=== PATIENT | male | born 1965 | race Caucasian/White ===

== ENCOUNTER 2016-12-28 18:42 | Inpatient (IN) ==
[2016-12-28] MEDS ORDERED: ZOFRAN IV ONE ×2 (18:53→20:07)
--- NOTE | 2016-12-28 19:33 | PROVIDER DOCUMENTATION ---
HPI-Abdominal Pain/GI Problem <Alden Zhang - Last Filed: 12/28/16 21:02> - General Source: patient, family () - History of Present Illness-ABD Nature of Presenting Problems: Pt is a 51 yom who presents to ER with CC of possible hemtemesis, hemoptysis, and hematochezia. Pt's reports that pt does not like going to hospital/ doctors, but finally forced pt to come to ER. Pt has had hematemesis and hematochezia x6 months, but became increasingly concerned when pt began coughing up pinkish/red sputum, resembling meat chunks. Pt reports that he use to be a big smoker, but quit approximately x1 week ago, and has since became severely weak and lethargic. Pt also reports that he use to drink a pint of ETOH per week. Pt's reports that pt has lost his appetite and lost a significant amount of weight that has become progressively worse over the past year. Abdominal Pain Onset Location: reports: other (unspecified) Pain Radiation: reports: no radiation Quality of Pain: reports: other (severe weakness) Severity in ED: reports: moderate Onset/Duration: reports: other (x6 months) Timing: reports: still present, getting worse Associated Symptoms: reports: cough, fatigue, loss of appetite, nausea, shortness of breath, vomiting, weakness, other (hemoptysis; hematochezia; hematemesis; loss of appetite). denies: anxiety, arm pain, back/neck pain, chest pain, constipation, EENT symptoms, fever/chills, genitourinary problems, sinus congestion/drainage, seizure, trouble walking Last BM: unsure Dark Stools Present?: reports: maroon Emesis Description: reports: red blood <Dagoberto Cobb - Last Filed: 12/28/16 21:39> - General Chief Complaint: GI Bleed Stated Complaint: VOMITING BLOOD, BLEEDING RECTUM Time Seen by Provider: 12/28/16 18:50 Allergies/Adverse Reactions: Patient Allergies Allergy/AdvReac Type Severity Reaction Status Date / Time No Known Allergies Allergy Verified 12/28/16 19:33 Home Medications: Home Medication List Medication Instructions Recorded Confirmed Last Taken Type No Home Medications 12/28/16 12/28/16 Unknown History Review of Systems - Adult - REVIEW OF SYSTEMS - ADULT Constitutional: reports: fatique, weight loss. denies: chills, fever, night sweats, weight gain Eyes: reports: no symptoms reported Ears, Nose, Mouth & Throat: reports: no symptoms reported Cardiovascular: denies: chest pain, edema, heart murmur, irregular heart rate, palpitations, poor circulation, syncope Respiratory: reports: chronic cough, cough, dyspnea on exertion, excessive sputum production, hemoptysis, shortness of breath, wheezing. denies: pleurisy Gastrointestinal: reports: hematemesis, diarrhea, nausea, poor appetite, rectal bleeding, vomiting, other (hematochezia). denies: constipation, difficulty swallowing, frequent heartburn Genitourinary: reports: no symptoms reported Musculoskeletal: reports: muscle weakness. denies: bone pain, back pain, frequent leg cramps, joint pain, joint swelling, muscle aches, neck pain Integumentary: reports: no symptoms reported Neurological: reports: no symptoms reported Psychiatric: reports: no symptoms reported Endocrine: reports: no symptoms reported Hematologic/Lymphatic: reports: no symptoms reported Allergic/Immunologic: reports: no symptoms reported All Other Systems: Reviewed and Negative <Dagoberto Cobb - Last Filed: 12/28/16 21:39> Past History - Adult - PAST MEDICAL HISTORY-ADULT Review of Records: reports: Nursing Assessment Review, Medications Reviewed - IMMUNIZATION STATUS Childhood Immunizations: See Nurse Assessment Flu Vaccine: See Nurse Assessment <Dagoberto Cobb - Last Filed: 12/28/16 21:39> Physical Exam-General - CONSTITUTIONAL General Appearance: appears well, alert, moderate distress, other (chronically ill-appearance) <Dagoberto Cobb - Last Filed: 12/28/16 21:39> Progress - PLAN OF CARE/RESULTS Progress/Plan/Lab Results: Vital Signs - 24 hr 12/28/16 12/28/16 18:45 20:52 Temperature 98.8 F Pulse Rate 93 H 98 H Respiratory 20 9 L Rate Blood Pressure 125/47 119/74 O2 Sat by Pulse 97 98 Oximetry Orders Category Date Time Status Saline Loc NOW Care 12/28/16 19:33 Completed ABD/PELVIS/PULM ARTERIES [CT] Stat Exams 12/28/16 19:58 Taken FLAT/UPRIGHT ABD/1 VIEW CHEST [RAD] Stat Exams 12/28/16 18:53 Taken HEAD W/O CONTRAST [CT] Stat Exams 12/28/16 20:06 Taken ALCOHOL BLOOD Stat Lab 12/28/16 19:20 Completed CBC WITH ELECTRONIC DIFF [HEME] Stat Lab 12/28/16 19:20 Completed CMP [COMPREHENSIVE METABOLIC PANEL] [CHEM] Stat Lab 12/28/16 19:20 Completed LIPASE [CHEM] Stat Lab 12/28/16 19:20 Completed OCCULT BLOOD SCREENING [STOOL] Stat Lab 12/28/16 19:20 Completed PROTIME WITH INR [COAG] Stat Lab 12/28/16 19:20 Completed PTT [COAG] Stat Lab 12/28/16 19:20 Completed TYPE & SCREEN [BBK] Stat Lab 12/28/16 19:20 Completed 0.9% Sodium Chloride Inj [Ns] 1,000 ml Med 12/28/16 20:07 Discontinued IV 999 mls/hr 0.9% Sodium Chloride Inj [Ns] 1,000 ml Med 12/28/16 20:15 Discontinued IV 999 mls/hr Furosemide [Lasix] Med 12/28/16 20:15 Discontinued 40 mg IV NOW ONE Hydromorphone [Dilaudid] Med 12/28/16 20:07 Discontinued 1 mg IV NOW ONE Ondansetron [Zofran] Med 12/28/16 18:53 Discontinued 4 mg IV NOW ONE Ondansetron [Zofran] Med 12/28/16 20:07 Discontinued 4 mg IV NOW ONE Laboratory Tests 12/28/16 12/28/16 12/28/16 19:20 19:20 19:20 WBC 9.91 RBC 4.08 L Hgb 12.1 L Hct 36.1 L MCV 88.5 MCH 29.7 MCHC 33.5 RDW Std Deviation 12.0 Plt Count 415 H MPV 9.0 Immature Gran % (Auto) 0.0 Neut % (Auto) 76.4 H Lymph % (Auto) 11.2 L Zapata % (Auto) 10.0 H Eos % (Auto) 2.2 Baso % (Auto) 0.2 Immature Gran # (Auto) 0.00 Neut # (Auto) 7.57 H Lymph # (Auto) 1.11 L [place] # (Auto) 0.99 H Eos # (Auto) 0.22 Baso # (Auto) 0.02 PT INR PTT (Actin FS) Sodium 138 Potassium 4.6 Chloride 98 Carbon Dioxide 29 Anion Gap 11 BUN 22 Creatinine 1.3 H Estimated GFR/1.73 m2 58 BUN/Creatinine Ratio 17 Glucose 107 H Calculated Osmolality 279 Calcium 13.3 H* Total Bilirubin 0.22 AST 148 H ALT 111 H Alkaline Phosphatase 169 H Total Protein 6.5 Albumin 3.3 L Globulin 3.2 Albumin/Globulin Ratio 1.0 Lipase 36 Plasma/Serum Ethyl Alc Blood Type Antibody Screen 12/28/16 12/28/16 19:20 19:20 WBC RBC Hgb Hct MCV MCH MCHC RDW Std Deviation Plt Count MPV Immature Gran % (Auto) Neut % (Auto) Lymph % (Auto) Zapata % (Auto) Eos % (Auto) Baso % (Auto) Immature Gran # (Auto) Neut # (Auto) Lymph # (Auto) Zapata # (Auto) Eos # (Auto) Baso # (Auto) PT 12.0 H INR 1.13 PTT (Actin FS) 26.3 Sodium Potassium Chloride Carbon Dioxide Anion Gap BUN Creatinine Estimated GFR/1.73 m2 BUN/Creatinine Ratio Glucose Calculated Osmolality Calcium Total Bilirubin AST ALT Alkaline Phosphatase Total Protein Albumin Globulin Albumin/Globulin Ratio Lipase Plasma/Serum Ethyl Alc Blood Type A NEGATIVE Antibody Screen NEGATIVE - REASSESSMENT Reassessment #1 Time Reassessed: 21:16 Status: other (Dr. Zhang discussed potential options for pt to execute, given his new diagnosis.) - XRAY 1 XRAY: Bilateral XRAY Study: Chest Impression: See EMR Report XRAY Interpretation: Large mass in L lung - CT/MRI 1 CT Study: Head Impression: See EMR Report CT Results: Normal 2 CT Study: Abdomen, Pelvis, Thorax Impression: See EMR Report (small L effusion; Large mass in L lung with mild fluid surrounding;) - CONSULTS/PCP/HOSPITALIST Notification #1 *Consult/PCP/Hospitalist*: Dr. Baron (Hospitalist) Time Discussed: 21:20 Consult Disposition: Admit <Dagoberto Cobb - Last Filed: 12/28/16 21:39> Departure - Departure Time of Disposition Order: 21:03 Certified Medical Emergency: Emergent <Alden Zhang - Last Filed: 12/28/16 21:02> - Departure Time of Disposition Order: 21:39 Certified Medical Emergency: Emergent <Dagoberto Cobb - Last Filed: 12/28/16 21:39> - Departure DIAGNOSIS: Hypercalcemia of malignancy Lung cancer Qualifiers: Laterality: left Lung location: lower lobe of lung Qualified Code(s): C34.32 - Malignant neoplasm of lower lobe, left bronchus or lung Disposition: ADMITTED INPATIENT 09 Condition: Fair Referrals: None,PCP [Primary Care Provider] - Attestation - Scribe Verification/Attestation Scribe:: Dagoberto Cobb Acting as Scribe for:: Alden Zhang Scribe documention review:: This chart was documented by a scribe and accurately reflects the service the provider performed and the decisions made by the provider. <Dagoberto Cobb - Last Filed: 12/28/16 21:39> Physician Attestation
[2016-12-28 19:45] LABS: MANUAL DIFF NEEDED? NO
[2016-12-28 19:47] LABS: BASO% 0.2 % (0.0-0.8); EOS# 0.22 X1000 (0.0-0.7); EOS% 2.2 % (0.0-10.0); HEMATOCRIT 36.1 % (42.0-52.0); HEMOGLOBIN 12.1 g/dL (14.0-18.0); LYMPH# 1.11 X1000 (1.2-3.4); LYMPH% 11.2 % (20.5-51.1); MCH 29.7 PG (27-31); MCHC 33.5 g/dL (33-37); MCV 88.5 FL (81-99); MONO# 0.99 X1000 (0.11-0.59); NEUT% 76.4 % (42.2-75.2); PLT 415 X1000 (130-400); RBC 4.08 XMIL (4.7-6.1)
[2016-12-28 19:56] LABS: INR 1.13; PTT 26.3 Seconds (22.0-36.0)
[2016-12-28] MEDS ORDERED: NS 1,000 ML IV ONE ×2 (20:07→20:15)
[2016-12-28] MEDS ORDERED: DILAUDID IV ONE (20:07)
[2016-12-28 20:14] LABS: ALBUMIN 3.3 g/dL (3.5-5.0); POTASSIUM 4.6 mmol/L (3.5-5.1); TOTAL BILIRUBIN 0.22 mg/dL (0.20-1.00); TOTAL PROTEIN 6.5 g/dL (6.3-8.3)
[2016-12-28 20:15] LABS: CALCIUM 13.3 mg/dL (8.8-10.2)
[2016-12-28] MEDS ORDERED: LASIX IV ONE (20:15)
--- NOTE | 2016-12-28 22:14 | Diag Imaging Result Document ---
PROCEDURE NAME: ABD/PELVIS/PULM ARTERIES - 12/28/2016 CT CHEST WITH INTRAVENOUS CONTRAST: TECHNIQUE: Dose reduction protocol. FINDINGS: There is a large left lung mass which I believe is centered in the lower lobe although a portion may be within the upper lobe. This measures at least 7.3 x 9.9 cm. The left lower lobe pulmonary bronchus is occluded. There are enlarged left hilar lymph nodes and mediastinal lymph nodes. There is a 1.7 cm left pleural effusion. No right-sided effusion. No cardiomegaly. No thoracic aortic aneurysm or dissection. Normal opacification of the right pulmonary arteries. There is circumferential narrowing of the distal left main pulmonary artery with decreased generalized perfusion on the left. The patient has emphysema. There is a 10 mm nodule laterally in the right lower lobe. There is a faint nodule in the mid right lung on image 82. A 5 mm nodule is found in the medial right lower lobe on image 139. There is postobstructive infiltrates in the left lower lobe. IMPRESSION: Large left lung mass with hilar and mediastinal adenopathy consistent with a primary malignancy with nodular metastases in the right lung. ABDOMEN AND PELVIS WITH INTRAVENOUS CONTRAST: FINDINGS: No distinct hepatic mass. Normal spleen, pancreas, and adrenal glands. The gallbladder is contracted. Normal enhancement of the kidneys. No hydronephrosis. No aortic aneurysm. Mild atherosclerosis. There is stool throughout the colon. No abscess. Prostate is not enlarged. The urinary bladder is only mildly distended. No enlarged lymph nodes. IMPRESSION: Constipation. A preliminary report was given at 8:53 p.m.
--- NOTE | 2016-12-28 22:16 | Diag Imaging Result Document ---
PROCEDURE NAME: HEAD W/O CONTRAST - 12/28/2016 CT BRAIN WITHOUT: TECHNIQUE: Dose reduction protocol. FINDINGS: No parenchymal hemorrhage. No epidural or subdural hematoma. No subarachnoid hemorrhage. No hydrocephalus. No mass identified on this noncontrasted exam. No sinus opacification. IMPRESSION: No hemorrhage. Negative brain CT without contrast. If there is clinical suspicion for brain metastases, an MRI is recommended. A preliminary report was given at 8:53 p.m.
[2016-12-28] MEDS ORDERED: ZOMETA 4 MG in NS 100 ML IV ONE (23:19)
[2016-12-28] MEDS ORDERED: NORCO-5 PO PRN (23:19)
[2016-12-28] MEDS: ZOFRAN IV PRN (23:42)
[2016-12-28] MEDS: NS 1,000 ML IV SCH (23:42)
[2016-12-29] MEDS: MIACALCIN SUBQ SCH ×2 (00:22→10:05)
[2016-12-29] MEDS: LOVENOX SUBQ SCH (00:22)
[2016-12-29] MEDS: ZOFRAN IV PRN ×2 (02:55→16:07)
[2016-12-29] MEDS: NS 1,000 ML IV SCH ×2 (06:48→13:34)
[2016-12-29] MEDS: PRILOSEC PO SCH (06:49)
[2016-12-29 06:54] LABS: MANUAL DIFF NEEDED? NO
[2016-12-29] MEDS: PHENERGAN IV PRN ×3 (07:05→18:07)
[2016-12-29] MEDS: SODIUM CHLORIDE 0.9% INJ PRN ×2 (07:05→18:07)
[2016-12-29] MEDS: DILAUDID IV PRN ×3 (07:05→21:30)
[2016-12-29 07:07] LABS: BASO% 0.2 % (0.0-0.8); EOS# 0.13 X1000 (0.0-0.7); EOS% 1.3 % (0.0-10.0); HEMATOCRIT 34.3 % (42.0-52.0); HEMOGLOBIN 11.3 g/dL (14.0-18.0); LYMPH# 1.33 X1000 (1.2-3.4); LYMPH% 13.4 % (20.5-51.1); MCH 29.3 PG (27-31); MCHC 32.9 g/dL (33-37); MCV 88.9 FL (81-99); MONO# 0.78 X1000 (0.11-0.59); MONO% 7.9 % (1.7-9.3); MPV 8.9 FL (7.4-10.4); NEUT% 77.2 % (42.2-75.2); PLT 387 X1000 (130-400); RBC 3.86 XMIL (4.7-6.1)
[2016-12-29 07:23] LABS: AGAP 12; BUN 19 mg/dL (8-22); CALCIUM 11.6 mg/dL (8.8-10.2); CHLORIDE 97 mmol/L (98-107); COSMO 277; POTASSIUM 4.1 mmol/L (3.5-5.1); SODIUM 137 mmol/L (136-145); TCO2 28 mmol/L (25-35)
--- NOTE | 2016-12-29 08:51 | HISTORY AND PHYSICAL ---
CHIEF COMPLAINT: Hemoptysis, generalized weakness, increasing thirst. HISTORY OF PRESENT STAY: This is a 51-year-old male with unremarkable past medical history, who presented to the emergency department complaining of general weakness. According to the , who is at bedside, the patient has been having continuous hemoptysis that was getting worse over about a year. Also, she noticed that this patient started losing weight for last 2-4 months, approximately at 16-20 pounds unintentionally. According to the , the patient does not like going to see doctors or going to the hospital, but finally she forced him to come to the emergency room today. The patient, as we mentioned before, was becoming severely weak and lethargic sometimes. He also reports having really poor appetite. Upon emergency room evaluation, they found a huge mass in the left lower lobe that is 10 cm size, so the patient is going to be admitted for further evaluation and treatment. PAST MEDICAL HISTORY: None. PAST SURGICAL HISTORY: None. ALLERGIES: Penicillin. SOCIAL HISTORY: He has smoked for about 37 years, 2-3 packs per day. Has reduced to 1 pack per day in the last year. He just stopped smoking a few days ago because of this hemoptysis that was getting worse. He reports drinking a lot of alcohol, 1 pint of alcohol daily. Apparently he quit 1 year ago. He denies using any drugs. 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 FAMILY HISTORY: Noncontributory. REVIEW OF SYSTEMS: Eleven systems were removed and are positive for increased thirst, weight loss, hemoptysis, and loss of appetite. He denies any fever or chills. PHYSICAL EXAMINATION: VITALS: Temperature 98.8 degrees, heart rate 98 respiratory rate 20, blood pressure 119/74, O2 saturation 98% on room air. GENERAL EXAMINATION: This is a chronically ill-looking and very disheveled 51-year-old male, lying in bed, in no acute distress. HEENT: Head is normocephalic, atraumatic. Anicteric sclerae and pale conjunctivae. Pupils equal, round, reactive to light and accommodation. Patient looks malnourished. NECK: Supple. No jugular venous distention noted. No carotid bruits. No lymphadenopathy. No thyromegaly. CARDIOVASCULAR EXAMINATION: S1, S2 heard. No murmurs, gallops, or rubs. Regular rate and rhythm. RESPIRATORY EXAMINATION: Decreased breath sounds globally. Some coarse breath sounds in the left base. The patient is not using any accessory muscles. No work of breathing noted. Not requiring any oxygen supplementation. ABDOMEN: Soft, nontender to palpation. Bowel sounds present. No organomegaly. EXTREMITIES: No clubbing, cyanosis, or edema. Peripheral pulses present in both legs. NEUROLOGICAL EXAMINATION: Patient is a little bit sleepy, but definitely answers questions well and moves 4 extremities. LABORATORY DATA: White cell count 9.91, hemoglobin 12.1, hematocrit 36.1, platelets 415,000. BMP remarkable for creatinine 1.3 and calcium 13.3. Mild elevation of AST 148, ALT 111. Alcohol level is 0. CT angio of the chest showed left lower mass, greater than 10 cm with left lower lobe bronchial obstructive pneumonitis. Left hilar mediastinal adenopathy as well. Abdomen and pelvis CT did not show any acute disease. ASSESSMENT AND PLAN: 1. Left lower lobe lung mass. 2. Severe hypercalcemia. 3. Acute kidney injury. 4. Generalized weakness. PLAN: The patient is basically admitted to the hospital because of this newly founded left lower lobe mass that is really big of 10 cm approximately, and also acute kidney injury with severe hypercalcemia, most likely from malignancy. At this time, what we are going to do is provide IV hydration and will use zoledronic acid and to try to lower extremely high calcium. Also because of continuous headaches that have been going on for at least a few months ago, we are going to check an MRI with and without contrast of the brain to rule out any brain metastasis. 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 We are going to continue with aggressive fluid resuscitation with normal saline at 150 mL/h. Definitely we will consult pulmonary and hematology/oncology to help us in the management of this patient. The liver function tests are elevated most likely because of this chronic alcohol consumption. Further recommendations to follow according to the clinical situation of the patient.
--- NOTE | 2016-12-29 09:11 | CONSULTATION ---
DATE OF CONSULTATION: 12/29/2016 REFERRING PHYSICIAN: Dr. Baron. CHIEF COMPLAINT: Hemoptysis and hematemesis. HISTORY OF PRESENT ILLNESS: This is a 51-year-old male with no significant past medical history that presented to the hospital with complaints of coughing and vomiting blood, and having some blood in the stool for the last several months. The patient is a former smoker and former drinker. Other symptoms are loss of appetite and weight loss. He has had some generalized weakness. He denies any chest pain, abdominal pain, syncope, dizziness, palpitations, fever, chills. He has been admitted to the floor for further evaluation, management, and treatment. REVIEW OF SYSTEMS: A 10-point review of systems was conducted and pertinent as noted in the HPI, otherwise noncontributory. PAST MEDICAL HISTORY: Denies. PAST SURGICAL HISTORY: Denies. SOCIAL HISTORY: The patient lives at home with his . He is a former smoker and drinker but he stopped smoking approximately a week ago. FAMILY HISTORY: Noncontributory. ACTIVE MEDICATIONS: [place], Lovenox, Prilosec, Zofran. PHYSICAL EXAMINATION: Vital Signs: Temperature 98.4, heart rate 69, respiratory rate 18, blood pressure 99/56, oxygen saturation 99%. General: Ill-appearing, 51-year-old male. Awake, alert. No acute distress noted. HEENT: Normocephalic and atraumatic. PERRL. Cardiovascular: Regular rate and rhythm. S1-S2 present. Chest: Reduced entry. Abdomen: Soft and nontender. Hyperactive bowel sounds in all quadrants. Skin: Warm, dry, and intact. Neurologic: Alert and oriented x3. No focal deficits. Psychiatric: Pleasant demeanor. DIAGNOSTIC DATA: WBC 9.1, RBCs 4.08, hemoglobin 12.1, hematocrit 36.1, platelet count 415,000. Sodium 138, potassium 4.6, chloride 98, carbon dioxide 29, anion gap 11, BUN 22, creatinine 1.3, glucose 107. CT of the chest, abdomen, and pelvis reveals a large left lung mass with hilar and mediastinal adenopathy, consistent with a primary malignancy with nodular metastasis in the right lung. ASSESSMENT AND PLAN: This is a 51-year-old male with no significant past medical history that presented to the hospital with complaints of hematochezia, hemoptysis, hematemesis. Diagnostics in the emergency room revealed a large left lung mass with metastasis to the right lung. The patient has been admitted to the floor with consults to pulmonary and oncology to discuss options. If the patient continues to have symptoms of gastrointestinal bleed, consider holding anticoagulants. Otherwise, continue current medications with gastrointestinal prophylaxis. Further recommendations pending diagnostic studies. Thank you for the courtesy of this consult. Dictated by SHEN Hooks for Jorje Contreras MD
--- NOTE | 2016-12-29 09:38 | Diag Imaging Result Document ---
PROCEDURE NAME: FLAT/UPRIGHT ABD/1 VIEW CHEST - 12/28/2016 FRONTAL CHEST X-RAY AND 2 VIEWS OF THE ABDOMEN, 12/28/2016: COMPARISON: None. FINDINGS: There is a dense infiltrate in the left lower lobe. Heart size and pulmonary vascularity is normal. No pneumothorax or pleural effusion. There is a nonobstructive bowel gas pattern. No free air. IMPRESSION: Dense left lower lobe consolidation. This turns out to be a large malignant mass on the followup CT.
[2016-12-29] MEDS ORDERED: SODIUM CHLORIDE 0.9% INJ ONE (13:18)
[2016-12-29] MEDS ORDERED: PHENERGAN IV ONE (13:18)
--- NOTE | 2016-12-29 21:02 | PROGRESS NOTE ---
DATE: 12/29/2016 SUBJECTIVE: Came in with hemoptysis, general weakness, increased thirst, 51-year-old male with unremarkable past medical history who presented to the emergency department complaining of general weakness. According to his who is at the bedside, the patient has been having continuous hemoptysis and getting worse over the last year. Noticed that the patient started losing weight about 2-4 months ago, approximately 16-20 pounds unintentionally according to his . Patient does not like going to doctors and going to the hospital, but forced him come in, was getting more lethargic. Reports having poor appetite. On emergency room evaluation, they found a lung mass in the left lower lobe 10 cm in size. Patient is going to be admitted for further evaluation and treatment. Thus far, he does not want any treatment. Today he is having quite a bit of nausea and not responding, not controlled with Zofran and Phenergan combination. He has had some severe hypercalcemia when he came in and acute kidney injury, of course protein calorie malnutrition and weight loss. OBJECTIVE: General: Exam today, he is resting, he did grunt in and answer questions, but really wants to be left alone. Vital signs: Temperature 98.3 degrees, pulse 67, respirations 14, blood pressure 101/61. HEENT: Pupils are equal, round. Lungs: Are clear in all lung hernandez. Cardiovascular: Regular rhythm and rate without murmur or S3. Abdomen: Soft. : Urine output was about 1800 mL. PERTINENT DATA: Laboratory reviewed from today, white count 9900, hematocrit 34, platelet count 387,000. Sodium 137, potassium 4.1, chloride 97, bicarb 28, BUN 19, creatinine 1.2. Calcium has come down from 13 to 11.6. ASSESSMENT AND PLAN: 1. Jorje Contreras MD was consulted. A 51-year-old, no significant past medical history. Presented with hematochezia, hemoptysis and hematemesis. Large left lung mass with or metastasis to the right lung. The patient has been uncomfortable thus far, does not want to pursue any. Need to hold the anticoagulants and may need to just pursue comfort measures. I had a remberto discussion with his . We may need to just pursue hospice, especially if he is not willing to pursue any further treatment options. CT of his chest showed left lower mass greater than 10 cm left lower lobe, bronchial, obstructive pneumonitis, left hilar mediastinal adenopathy as well. Abdominal and pelvic CT did not show any acute disease. 2. Severe hypercalcemia. He had hydration and we used zoledronic acid and it seems to have responded. Because of continued headaches, they want to pursue an magnetic resonance imaging of the head, but I think he has refused that. 3. He has some acute kidney injury. Continue intravenous fluids. 4. Nausea persistent. I will offer a nasogastric tube. I am not sure he will he will comply with that. We are trying Zofran and Zosyn. Normal saline at 150 mL an hour, Prilosec 40 mg daily, Lovenox 40 mg subcutaneous daily. He is getting Dilaudid 1 mg intravenously q.3 hours p.r.n., and he received the zoledronic acid 4 mg. This was done yesterday.
[2016-12-30] MEDS: LOVENOX SUBQ SCH ×2 (04:42→23:40)
[2016-12-30] MEDS: NS 1,000 ML IV SCH ×5 (04:42→18:21)
[2016-12-30] MEDS ORDERED: TYLENOL PR PRN (05:57)
[2016-12-30] MEDS ORDERED: OFIRMEV 1000 MG/ISOTONIC SOLN 100 ML IV ONE (06:22)
[2016-12-30 07:22] LABS: MANUAL DIFF NEEDED? NO
[2016-12-30] MEDS: PRILOSEC PO SCH (07:39)
[2016-12-30 07:46] LABS: AGAP 10; BUN 17 mg/dL (8-22); CHLORIDE 102 mmol/L (98-107); COSMO 274; POTASSIUM 3.9 mmol/L (3.5-5.1); SODIUM 136 mmol/L (136-145); TCO2 24 mmol/L (25-35)
[2016-12-30 07:55] LABS: BASO% 0.2 % (0.0-0.8); EOS# 0.01 X1000 (0.0-0.7); EOS% 0.2 % (0.0-10.0); HEMATOCRIT 30.2 % (42.0-52.0); HEMOGLOBIN 9.7 g/dL (14.0-18.0); IMM GRAN# 0.02 X1000 (0.0-0.04); IMM GRAN% 0.4 % (0.0-0.5); LYMPH# 0.51 X1000 (1.2-3.4); MCH 28.6 PG (27-31); MCHC 32.1 g/dL (33-37); MCV 89.1 FL (81-99); MONO# 0.47 X1000 (0.11-0.59); MONO% 8.3 % (1.7-9.3); MPV 8.9 FL (7.4-10.4); NEUT% 81.9 % (42.2-75.2); PLT 326 X1000 (130-400); RBC 3.39 XMIL (4.7-6.1)
--- NOTE | 2016-12-30 07:56 | Diag Imaging Result Document ---
PROCEDURE NAME: CHEST-PORTABLE - 12/29/2016 PORTABLE CHEST X-RAY: COMPARISON: 12/28/2016. FINDINGS: There is some sort of tube with the tip in the central thoracic esophagus. No tube in the stomach. IMPRESSION: There is no tube in the stomach.
[2016-12-30] MEDS: PHENERGAN IV PRN ×2 (12:34→20:49)
[2016-12-30] MEDS: SODIUM CHLORIDE 0.9% INJ PRN (12:34)
[2016-12-30] MEDS: DILAUDID IV PRN ×2 (12:34→20:49)
--- NOTE | 2016-12-30 16:49 | PROGRESS NOTE ---
DATE: 12/30/2106 SUBJECTIVE: He is awake and much more comfortable. They were unsuccessful placing an NG tube yesterday. He had quite a bit of nausea which is intractable. It is better this morning. I asked him what he wants to do. He does not want to pursue treatment for his lung cancer and would like to go home and try and set up for hospice. Chest x-ray on 12/29/2016, there is some sort tube with the tip in the central thoracic esophagus but no tube in the stomach. That was when they were trying to attempt to put the NG tube down unsuccessfully. OBJECTIVE: Vital signs: He had a temp of 100.6 yesterday, temp 98.7 degrees, pulse 70, respirations 18, blood pressure 106/58. Respiratory: Lungs are clear anterolateral and posterior. Cardiovascular: Regular rhythm and rate without murmur or S3. Abdomen: Soft. Skin: Warm and dry. LAB: Reviewed lab. White count 5,680, hematocrit 30, platelet count 326,000. Sodium 136, potassium 3.9, chloride 102, bicarb 24, BUN 17, creatinine 1.1. Blood sugars 123, 114. ASSESSMENT AND PLAN: This is a 51-year-old who presented with hematochezia, hemoptysis, and hematemesis. 1. Large left lung mass which appears metastatic. He does not want to pursue any treatment. CT of the chest showed lower mass greater than 10 cm, bronchial obstructive pneumonitis, left hilar mediastinal adenopathy. Abdominal and pelvic CT were unremarkable. 2. He had severe hypercalcemia. He was treated with and some IV fluids and this has improved. 3. Acute kidney injury which is improving with fluids. 4. Nausea which is better today. Not eating much. Poor protein calorie intake. He would like to set up to go home with hospice. We will see if we can get that set up for him. Fluids at the present time going at 150 mL an hour. Note, his serum creatinine came down to 1.1 so that is encouraging and calcium is down to 10.
[2016-12-31] MEDS: PRILOSEC PO SCH (06:04)
[2016-12-31 07:29] LABS: MANUAL DIFF NEEDED? NO
[2016-12-31 07:36] LABS: BASO% 0.2 % (0.0-0.8); EOS# 0.17 X1000 (0.0-0.7); EOS% 2.1 % (0.0-10.0); HEMATOCRIT 30.4 % (42.0-52.0); HEMOGLOBIN 9.9 g/dL (14.0-18.0); IMM GRAN# 0.02 X1000 (0.0-0.04); IMM GRAN% 0.2 % (0.0-0.5); LYMPH# 1.14 X1000 (1.2-3.4); LYMPH% 14.2 % (20.5-51.1); MCH 28.9 PG (27-31); MCHC 32.6 g/dL (33-37); MCV 88.9 FL (81-99); MONO# 0.71 X1000 (0.11-0.59); MONO% 8.8 % (1.7-9.3); MPV 8.8 FL (7.4-10.4); NEUT% 74.5 % (42.2-75.2); PLT 306 X1000 (130-400); RBC 3.42 XMIL (4.7-6.1)
[2016-12-31 07:43] LABS: AGAP 10; BUN 15 mg/dL (8-22); CALCIUM 8.9 mg/dL (8.8-10.2); CHLORIDE 100 mmol/L (98-107); COSMO 267; POTASSIUM 3.7 mmol/L (3.5-5.1); SODIUM 132 mmol/L (136-145); TCO2 22 mmol/L (25-35)
--- NOTE | 2016-12-31 09:05 | CONSULTATION ---
DATE OF CONSULTATION: 12/29/2016 CHIEF COMPLAINT: Left lung mass. HISTORY OF PRESENT ILLNESS: Mr. Martin is a pleasant, 51-year-old male with an unremarkable past medical history, who presented to [facility] Emergency department complaining of generalized weakness. The patient's also reported that the patient has had continuous hemoptysis, that has progressively worsened over the last year. She also noticed that the patient has been losing weight for the last 2-4 months. He has lost approximately 20 pounds. According to the patient's , the patient does not have a primary care physician and has not been seen by a physician in years. Upon presentation to [facility], the patient did undergo CT of the chest, abdomen and pelvis, which revealed a large left-sided lung mass 7.3 x 9.9 cm with an enlargement of left hilar and mediastinal lymph nodes as well as a 10 mm nodule in the right lower lobe. We are consulted for the same. PAST MEDICAL HISTORY: None. PAST SURGICAL HISTORY: None. SOCIAL HISTORY: The patient has a 2-3 pack per day history of smoking cigarettes for 37 years. He reports that he has reduced his smoking to 1 pack per day in the last year. The patient has a history of drinking 1 pint of alcohol daily as well, but states that he quit drinking 1 year ago. He has no history of illicit drug use. FAMILY HISTORY: Negative for oncologic or hematologic problems. MEDICATIONS: On admission, none. ALLERGIES: To penicillin. REVIEW OF SYSTEMS: A 14-point review of systems was obtained and is negative except as mentioned in HPI. PHYSICAL EXAM: General: Mr. Martin is a 51-year-old, male, lying supine in bed, somewhat cachectic and in no immediate distress. Vital Signs: Temperature 98.3, blood pressure 101/61, heart rate 67, respirations 14, O2 saturation is 94% on room air. HEENT: Normocephalic, atraumatic. Mucous membranes are pink and somewhat dry. Sclerae is anicteric. Extraocular movements intact. Neck: Supple. Lungs: With decreased breath sounds in left lower lobe, with coarse breath sounds otherwise. CV: S1-S2 is heard without murmur, rub or gallop. Abdomen: Soft, nondistended, nontender. Bowel sounds positive all quadrants. No rebound or guarding noted. Extremities: Without clubbing, cyanosis, or edema. Dermatologic: No rashes, bruises or lesions. Neuro: The patient is quite somnolent at this time. However, he is oriented x3 and has no focal motor deficits. LABORATORY DATA: Hemoglobin 11.3, hematocrit 34.3, white blood cell count 9.90, platelets 387. ANC is 7.64. Sodium 137, potassium 4.1, chloride 97, CO2 is 28, BUN 19, creatinine 1.2, glucose is 122, calcium 11.6. IMAGING STUDIES: CT of the chest, abdomen and pelvis reveals a large left lung mass 7.3 x 9.9 cm with enlargement of left hilar and mediastinal lymph nodes and a 10 mm nodule on the right lower lobe. ASSESSMENT AND PLAN: 1. Pulmonary mass, large left lung mass 7.3 x 9.9 cm with enlargement of left hilar and mediastinal lymph nodes as well as a 10 mm nodule in the right lower lobe. The patient reports that he wants no treatment regarding lung mass at this time. He does report that he will discuss his diagnosis and treatment with his . The patient has been made aware of the risks, benefits and alternatives to treatment. If the patient does agree to treatment, we will proceed with bone scan and MRI of the brain as well as a CT-guided biopsy of the lung mass. 2. Anemia of questionable etiology. Probably related to #1. Hemoglobin today is 11.3. 3. Tobacco abuse. The patient reports that he has quit smoking secondary to hemoptysis. 4. Alcohol abuse. The patient has quit drinking 1 year ago. We will follow along with you and make further recommendations pending outcome. The above reflects the history, exam, assessment and plan of Dr. Pugh. Dictated by SHEN Amador for Alvin Pugh MD
[2016-12-31] MEDS: NS 1,000 ML IV SCH ×3 (10:27→13:47)
[2016-12-31] MEDS: DILAUDID IV PRN (13:48)
[2016-12-31] MEDS: SODIUM CHLORIDE 0.9% INJ PRN (13:54)
[2016-12-31] MEDS: PHENERGAN IV PRN (13:54)
[2016-12-31 16:16] VITALS: BP 114/62
--- NOTE | 2017-01-01 06:59 | DISCHARGE SUMMARY ---
ADMISSION DATE: 12/28/2016 DISCHARGE DATE: 12/31/2016 HISTORY AND HOSPITAL COURSE: This is a 51-year-old male with unremarkable past history, who presented to the emergency room complaining of general weakness. According to his who is at his bedside, patient has been having continuous hemoptysis and getting worse over the last year. It has been going on for at least a year. Noticed that the patient had started losing weight for 2-4 months of approximately 16-20 pounds. According to , the patient does not like to see doctors and would not go the hospital. Finally, she forced him to come in. He became severely weak and lethargic. Reports has poor appetite. In the emergency room, they found a huge mass in the left lower lobe that was 10 cm in size. The patient was admitted. 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 Dr. Contreras involved in his care. Dr. Pugh was consulted today. He has a 2-3 pack year history of smoking. Pulmonary mass measures 7.3 x 9.9 cm and large middle left hilar and mediastinal lymph nodes, as well as the 10 mm nodule in the right lower lobe. The patient reports he wants no treatment and would like to go home with hospice. He has been made aware of the risks and benefits and alternatives for treatment. He has anemia of questionable etiology. Hemoglobin was 11.3. He does have continued tobacco use. He was counseled on how and the means to try to quit smoking, but apparently he has quit recently because of hemoptysis. Has a history of alcohol abuse apparently in the past. I discharged him on 12/31/2016. DISCHARGE MEDICATIONS: I think he ought to stay on the Prilosec 40 mg a day. We will arrange hospice to arrange for pain control. Note that when he first came in, he had hypercalcemia. His calcium was 13.3, and he was treated with IV fluids and I gave him a dose of zoledronic acid and calcium came down nicely. DISPOSITION: Will discharge home.
== END 2016-12-31 17:35 | disposition hospice, home (50) | DRG 180 ==
LOC: ED 18:42 → 3N 22:21
PROVIDERS: ATTEND Emergency Medicine
DX: C34.32 Malignant neoplasm of lower lobe, left bronchus or lung (principal); J18.9 Pneumonia, unspecified organism; R64 Cachexia; N17.9 Acute kidney failure, unspecified; C78.01 Secondary malignant neoplasm of right lung; E22.2 Syndrome of inappropriate secretion of antidiuretic hormone; E46 Unspecified protein-calorie malnutrition; R04.2 Hemoptysis; Z68.1 Body mass index [BMI] 19.9 or less, adult; E83.52 Hypercalcemia; R59.0 Localized enlarged lymph nodes; F17.211 Nicotine dependence, cigarettes, in remission; D64.9 Anemia, unspecified
CPT/HCPCS: 70450; 71010; 71275; 74022; 74177; 80048; 80053; 82270; 82948; 83690; 85025; 85610; 85730; 86850; 86900; 86901; 96361; 96374; 96375; 96376; G0480; J0131; J0630; J1170; J1940; J2405; J2550; J3489; J7030; Q9967; 80320